=== PATIENT | female | born 1955 | race Hispanic/Latino ===

== ENCOUNTER 2018-05-03 16:49 | Observation (INO) | payer MEDICARE, OTHER ==
[~2018-05-03] VITALS: Ht 162.6 cm; Wt 99.4 kg
--- OUTSIDE RECORDS SUMMARY | 2018-05-03 16:52 | XMS REPORT ---
Author Author [facility] Address Unknown Phone Unavailable Care Team Providers Care Transport Operations Inspector Name Role Phone Unavailable Unavailable Payers Payer Name Policy Type Policy Number Effective Date Expiration Date Problems This patient has no known problems. Allergies, Adverse Reactions, Alerts Allergy Name Allergy Type Status Severity Reaction(s) Onset Date Inactive Date Treating Clinician Comments hydrocodone bit DA Active SV 2013-11-23 00:00:00 Medications This patient has no known medications. Encounters Start Date/Time End Date/Time Encounter Type Admission Type Attending Clinicians Care Facility Care Department Encounter ID 2017-11-30 09:48:36 Inpatient [facility] [id number] 2018-03-24 00:00:00 2018-03-24 00:00:00 Outpatient [facility] [id number] 2018-03-12 00:00:00 2018-03-12 00:00:00 Outpatient [facility] [id number] 2018-02-25 14:52:05 2018-02-25 14:52:05 Outpatient [facility] [id number] 2018-01-29 09:47:26 2018-01-29 09:47:26 Outpatient [facility] [id number] 2018-01-22 00:00:00 2018-01-22 00:00:00 Outpatient [facility] [id number] 2017-12-26 12:35:20 2017-12-26 12:35:20 Outpatient [facility] [id number] 2017-12-26 12:35:17 2017-12-26 12:35:17 Outpatient [facility] [id number] 2017-12-20 00:00:00 2017-12-20 00:00:00 Outpatient [facility] [id number] 2017-12-18 13:48:02 2017-12-18 13:48:02 Outpatient [facility] [id number] 2017-12-18 08:14:43 2017-12-18 08:14:43 Outpatient [facility] [id number] 2017-12-16 13:29:16 2017-12-16 13:29:16 Outpatient [facility] [id number] 2017-12-16 12:07:22 2017-12-16 12:07:22 Outpatient [facility] [id number] 2017-12-10 13:53:25 2017-12-10 13:53:25 Outpatient [facility] [id number] 2017-12-10 12:46:04 2017-12-10 12:46:04 Outpatient [facility] [id number] 2017-12-10 00:00:00 2017-12-10 00:00:00 Outpatient [facility] [id number] 2017-12-10 00:00:00 2017-12-10 00:00:00 Outpatient [facility] [id number] 2017-12-09 00:00:00 2017-12-09 00:00:00 Outpatient [facility] [id number] 2017-12-03 15:31:56 2017-12-03 15:31:56 Outpatient [facility] [id number] 2017-12-02 15:26:45 2017-12-02 15:26:45 Outpatient [facility] [id number] 2017-11-29 18:01:32 2017-11-29 18:01:32 Inpatient [facility] [id number] 2017-10-18 13:16:34 2017-10-18 13:16:34 Outpatient [facility] [id number] 2017-10-15 00:00:00 2017-10-15 00:00:00 Outpatient [facility] [id number] 2017-10-09 00:00:00 2017-10-09 00:00:00 Outpatient [facility] [id number] 2017-10-07 00:00:00 2017-10-07 00:00:00 Outpatient [facility] [id number] 2017-10-07 00:00:00 2017-10-07 00:00:00 Outpatient [facility] [id number] 2017-09-27 13:02:01 2017-09-27 13:02:01 Outpatient [facility] [id number] 2017-08-23 00:00:00 2017-08-23 00:00:00 Outpatient [facility] [id number] 2017-08-16 09:51:19 2017-08-16 09:51:19 Outpatient [facility] [id number] 2017-08-06 00:00:00 2017-08-06 00:00:00 Outpatient [facility] [id number] 2017-08-02 09:39:14 2017-08-02 09:39:14 Outpatient [facility] [id number] 2017-07-31 21:14:26 2017-07-31 21:14:26 Emergency [facility] [id number] 2017-07-19 10:33:23 2017-07-19 10:33:23 Outpatient [facility] [id number] 2017-07-19 10:30:14 2017-07-19 10:30:14 Outpatient [facility] [id number] 2017-07-09 00:00:00 2017-07-09 00:00:00 Outpatient [facility] [id number] 2017-07-04 15:45:07 2017-07-04 15:45:07 Outpatient [facility] [id number] 2017-06-24 11:29:02 2017-06-24 11:29:02 Outpatient [facility] [id number] 2017-06-11 00:00:00 2017-06-11 00:00:00 Outpatient [facility] [id number] 2017-06-03 00:00:00 2017-06-03 00:00:00 Outpatient [facility] [id number] 2017-05-28 07:42:32 2017-05-28 07:42:32 Outpatient [facility] [id number] 2017-05-23 07:27:19 2017-05-23 07:27:19 Outpatient [facility] [id number] 2017-05-21 12:44:13 2017-05-21 12:44:13 Outpatient [facility] [id number] 2017-05-03 15:46:50 2017-05-03 15:46:50 Outpatient [facility] [id number] 2017-05-03 10:26:24 2017-05-03 10:26:24 Outpatient [facility] [id number] 2017-04-19 09:25:06 2017-04-19 09:25:06 Outpatient [facility] [id number] 2017-04-19 00:00:00 2017-04-19 00:00:00 Outpatient [facility] [id number] 2017-04-10 09:40:05 2017-04-10 09:40:05 Outpatient [facility] [id number] 2017-04-09 00:00:00 2017-04-09 00:00:00 Outpatient [facility] [id number] 2017-03-01 08:51:14 2017-03-01 08:51:14 Outpatient [facility] [id number] 2017-03-01 00:00:00 2017-03-01 00:00:00 Outpatient [facility] [id number] 2017-02-26 12:36:30 2017-02-26 12:36:30 Outpatient [facility] [id number] 2017-02-14 09:31:45 2017-02-14 09:31:45 Outpatient [facility] [id number] 2017-02-14 00:00:00 2017-02-14 00:00:00 Outpatient [facility] [id number] 2017-02-13 08:44:56 2017-02-13 08:44:56 Outpatient [facility] [id number] 2017-02-13 08:44:53 2017-02-13 08:44:53 Outpatient [facility] [id number] 2017-02-12 17:09:15 2017-02-12 17:09:15 Outpatient [facility] [id number] 2017-01-31 12:20:22 2017-01-31 12:20:22 Outpatient [facility] [id number] 2017-01-18 00:00:00 2017-01-18 00:00:00 Outpatient [facility] [id number] 2017-01-18 00:00:00 2017-01-18 00:00:00 Outpatient [facility] [id number] 2017-01-17 11:18:33 2017-01-17 11:18:33 Outpatient [facility] [id number] 2017-01-17 10:36:48 2017-01-17 10:36:48 Outpatient [facility] [id number] 2017-01-15 14:12:32 2017-01-15 14:12:32 Outpatient [facility] [id number] 2016-12-04 10:47:48 2016-12-04 10:47:48 Outpatient [facility] [id number] 2016-11-26 13:45:57 2016-11-26 13:45:57 Outpatient [facility] [id number] 2016-10-02 14:25:27 2016-10-02 14:25:27 Outpatient [facility] [id number] 2016-09-17 09:54:06 2016-09-17 09:54:06 Outpatient [facility] [id number] 2016-09-13 15:03:40 2016-09-13 15:03:40 Outpatient [facility] [id number] 2014-01-05 08:26:06 2014-01-05 08:26:06 Outpatient [facility] [id number]
[2018-05-03] MEDS ORDERED: METFORMIN HCL500 M2 PO (17:26)
[2018-05-03] MEDS ORDERED: OMEPRAZOLE40 MG PO (17:26)
[2018-05-03] MEDS ORDERED: LOSARTAN POTAS100 MG PO (17:26)
[2018-05-03] MEDS ORDERED: BENZONATATE100 MG PO (17:26)
[2018-05-03] MEDS ORDERED: LEVOTHYROXINE75 MCG PO (17:26)
[2018-05-03] MEDS ORDERED: PREDNISONE5 MG (17:26)
--- NOTE | 2018-05-03 18:01 | NUR ---
Xray leaves bedside.
[2018-05-03 18:06] LABS: BASOPHILS % 0.1 % (0.0-1.0); HEMATOCRIT 39.4 % (34.2-44.1); HEMOGLOBIN 13.2 g/dL (12.0-16.0); LYMPHOCYTES # (AUTO) 1.7 (1.0-3.2); LYMPHOCYTES % 11.4 % (18.0-39.1); MEAN CORPUSCULAR HEMOGLOBIN 29.8 pg (28-32); MEAN CORPUSCULAR HGB CONC 33.5 g/dL (31-35); MEAN CORPUSCULAR VOLUME 88.9 fL (81-99); MONOCYTES # (AUTO) 0.5 (0.2-0.8); MONOCYTES % 3.4 % (4.4-11.3); NEUTROPHILS # (AUTO) 12.4 (2.1-6.9); NEUTROPHILS % 84.7 % (38.7-80.0); PLATELET COUNT 335 x10e3/uL (140-360); RED BLOOD COUNT 4.43 x10e6/uL (3.6-5.1); RED CELL DISTRIBUTION WIDTH 12.3 % (11.7-14.4)
[2018-05-03 18:12] LABS: INR 0.88; PROTHROMBIN TIME 12.8 seconds (11.9-14.5)
[2018-05-03 18:13] LABS: PARTIAL THROMBOPLASTIN TIME 23.6 seconds (23.8-35.5)
[2018-05-03 18:22] LABS: ALBUMIN 3.9 g/dL (3.5-5.0); CALCIUM 9.9 mg/dL (8.4-10.2); CREATININE, SERUM 1.11 mg/dL (0.57-1.11)
--- NOTE | 2018-05-03 18:26 | Diagnostic Imaging Report ---
EXAMINATION: CHEST SINGLE (PORTABLE) COMPARISON: None INDICATION: ^COUGH, CP, SOB ^[id number] ^1805 DISCUSSION: Frontal view of the chest obtained at 1807 hours. HEART AND MEDIASTINUM: The cardiomediastinal silhouette is unremarkable. LINES: None. LUNGS: Lung volumes are low. No mass or infiltrate. No pulmonary edema. PLEURA: No pleural effusion or pneumothorax. BONES AND SOFT TISSUES: No focal osseous lesion. The soft tissues are normal. IMPRESSION: Low lung volumes. No acute cardiopulmonary process. Signed by: Dr. Tera Conte MD on 05/03/2018 6:23 PM
[2018-05-03 18:34] LABS: BILIRUBIN,URINE NEGATIVE (NEGATIVE); CLARITY,URINE HAZY (CLEAR); COLOR,URINE YELLOW (YELLOW); KETONES,URINE NEGATIVE (NEGATIVE); LEUKOCYTE ESTERASE ,URINE TRACE (NEGATIVE); NITRITE,URINE NEGATIVE (NEGATIVE); PROTEIN,URINE DIPSTICK NEGATIVE (NEGATIVE); URINE UROBILINOGEN 0.2 mg/dL (0.2 - 1)
[2018-05-03 18:41] LABS: BACTERIA,URINE FEW /HPF; EPITHELIAL CELLS,URINE FEW /LPF; RBC,URINE 0-5 /HPF (0-5); WBC,URINE (MAN) 0-5 /HPF (0-5)
[2018-05-03 18:42] LABS: CREATINE KINASE MB 0.5 ng/mL (0-5.0); THYROID STIMULATING HORMONE 0.151 uIU/mL (0.350-4.940)
--- NOTE | 2018-05-03 19:35 | NUR ---
WALKING ROUNDS WITH OLIVA ARROYO DAY SHIFT NURSE.
[2018-05-03 19:45] LABS: B-TYPE NATRIURETIC PEPTIDE2 10.7 pg/mL (0-100)
[2018-05-03] MEDS ORDERED: SODIUM CHLORIDE 0.9% 1000ML 1,000 ML IV SCH (21:15)
[2018-05-03] MEDS ORDERED: NITROGLYCERIN 0.4 MG SUBL SL PRN (22:15)
[2018-05-03] MEDS ORDERED: DEXTROSE 50% SYRINGE 50 ML IV PRN (22:15)
[2018-05-03] MEDS ORDERED: MORPHINE SULFATE 2 MG/ML SYR IV PRN (22:15)
[2018-05-03] MEDS ORDERED: ONDANSETRON HCL INJ 2 MG/ML VIAL IV PRN (22:15)
[2018-05-03] MEDS: CEFTRIAXONE SOD 1 GM/NS 50 ML 50 ML IV SCH (22:56)
[2018-05-03] MEDS: FAMOTIDINE 20 MG TAB PO SCH (22:57)
--- NOTE | 2018-05-04 03:45 | NUR ---
PT PLACED ON HOSPITAL BED.
[2018-05-04 04:54] LABS: BASOPHILS % 0.3 % (0.0-1.0); EOSINOPHILS # (AUTO) 0.1 (0.0-0.4); EOSINOPHILS % 0.6 % (0.0-6.0); HEMATOCRIT 32.5 % (34.2-44.1); HEMOGLOBIN 10.8 g/dL (12.0-16.0); LYMPHOCYTES # (AUTO) 3.1 (1.0-3.2); LYMPHOCYTES % 28.8 % (18.0-39.1); MEAN CORPUSCULAR HEMOGLOBIN 29.6 pg (28-32); MEAN CORPUSCULAR HGB CONC 33.2 g/dL (31-35); MONOCYTES # (AUTO) 0.9 (0.2-0.8); MONOCYTES % 8.8 % (4.4-11.3); NEUTROPHILS # (AUTO) 6.5 (2.1-6.9); NEUTROPHILS % 60.7 % (38.7-80.0); PLATELET COUNT 269 x10e3/uL (140-360); RED BLOOD COUNT 3.65 x10e6/uL (3.6-5.1); RED CELL DISTRIBUTION WIDTH 12.4 % (11.7-14.4)
[2018-05-04 05:17] LABS: ANION GAP 12.8 mmol/L (8-16); BLOOD UREA NITROGEN 22 mg/dL (7-26); BUN/CREATININE RATIO 24 (6-25); CALCIUM 8.8 mg/dL (8.4-10.2); CARBON DIOXIDE 21 mmol/L (22-29); CHLORIDE 103 mmol/L (98-107); CHOL/HDL RATIO 2.8 (3.0-3.6); CHOLESTEROL 169 MD/DL (0-199); CREATININE, SERUM 0.92 mg/dL (0.57-1.11); EST GLOMERULAR FILTRATION RATE > 60 ML/MIN (60-); GLUCOSE 301 mg/dL (74-118); HDL CHOLESTEROL 60 MG/DL (40-60); LDL CHOLESTEROL 75 MG/DL (60-130); POTASSIUM 3.8 mmol/L (3.5-5.1); SODIUM 133 mmol/L (136-145); TRIGLYCERIDES 169 MG/DL (0-149)
[2018-05-04 05:26] LABS: CREATINE KINASE MB 0.6 ng/mL (0-5.0)
--- NOTE | 2018-05-04 07:04 | NUR ---
Walking rounds with OLIVA Vega.
--- NOTE | 2018-05-04 07:04 | NUR ---
REPORT GIVEN TO OLIVA ARROYO DAY SHIFT NURSE.
--- NOTE | 2018-05-04 07:07 | NUR ---
REPORT GIVEN TO OLIVA ARROYO DAY SHIFT NURSE.
[2018-05-04] MEDS: ASPIRIN 81 MG ENTERIC COATED PO SCH (08:00)
[2018-05-04] MEDS: INSULIN REGULAR, HUMAN 100 UNIT/1 ML 3ML VIAL SQ SCH ×4 (08:03→21:28)
[2018-05-04] MEDS: AZITHROMYCIN 500MG/NS 250 ML 250 ML IV SCH (08:06)
--- NOTE | 2018-05-04 09:07 | NUR ---
Pt's right AC IV is noted to be infiltrated. Warm compresses placed onto site for comfort.
--- NOTE | 2018-05-04 09:12 | NUR ---
Lactic 29.2, phone called recieved by lab.
[2018-05-04] MEDS: FAMOTIDINE 20 MG TAB PO SCH ×2 (10:00→21:28)
[2018-05-04] MEDS ORDERED: MORPHINE SULFATE INJ 4 MG/ML INJ IV PRN (10:15)
--- NOTE | 2018-05-04 11:00 | NUR ---
Right AC obtained using an us machine via 20 g, upon flush administration to the site, infiltration is noted. IV is DC'd. A warm compress is placed onto the site for comfort. Admitting doctor called, orders rec'd. See [facility] for details.
[2018-05-04] MEDS ORDERED: GUAIFENESIN/CODEINE 10 ML CUP PO PRN (11:15)
[2018-05-04] MEDS ORDERED: BENZONATATE 100 MG CAP PO PRN (11:15)
--- NOTE | 2018-05-04 11:46 | NUR ---
Dr. Duran roundsusan at this time.
[2018-05-04] MEDS ORDERED: ACETAMINOPHEN 325 MG TAB PO PRN (12:30)
--- NOTE | 2018-05-04 12:42 | NUR ---
Consent signed & placed on chart.
--- NOTE | 2018-05-04 13:45 | NUR ---
report received from Daniela in ER, patient arriving with no IV access, PICC to be placed. Patient arrived on floor in wheelchair. Alert and oriented and in no distress.
[2018-05-04 14:00] VITALS: BP 135/62
[2018-05-04 14:06] VITALS: BP 134/63
[2018-05-04 14:08] VITALS: BP 134/63
[2018-05-04 14:17] LABS: CREATINE KINASE MB 0.6 ng/mL (0-5.0)
--- NOTE | 2018-05-04 14:52 | History and Physical ---
MEDICINE HISTORY AND PHYSICAL CHIEF COMPLAINT: Cough, congestion, not feeling well. HISTORY OF PRESENT ILLNESS: This is a 63-year-old female morbidly obese with known history of hypertension and type 2 diabetes and hypothyroidism, who comes into the ED with complaints of cough, congestion, and not feeling well. She was recently seen at [facility] ER, was treated for acute bronchitis, given steroids, , and antibiotics. Patient reports that she is still not feeling well and came into the ER here to be further evaluated. On evaluation, patient still has a nonproductive cough and sounds more like a viral bronchitis. She also endorses some chest pains left-sided with radiation to the left shoulder and arm. Denies any fever at home, diarrhea, abdominal pain, or any other complaints. Patient seen and evaluated at bedside in the ER, currently very stable and was eager to be discharged. Pertinent positive in the lab shows a slight elevation of lactic acid. REVIEW OF SYSTEMS: Pertinent positives: Cough, congestion, subjective fever, chest pain. Pertinent negatives: Denies any palpitations, nausea, vomiting, diarrhea, dysuria, hematuria, frequency, urgency, lightheadedness, dizziness, abdominal pain, headache, shortness of breath, fever, or any other complaints. The rest of the 14-point review of systems have been reviewed with the patient and are negative. ALLERGIES: NO KNOWN DRUG ALLERGIES. HOME MEDICATIONS: Levothyroxine 75 mcg daily, losartan 100 mg daily, omeprazole 40 mg daily, Tessalon Perles 100 mg p.o. t.i.d., metformin 1000 mg p.o. b.i.d., prednisone 5 mg daily. PAST MEDICAL HISTORY: Type 2 diabetes, hypertension, morbid obesity, hypothyroidism. PAST SURGICAL HISTORY: None. FAMILY HISTORY: Hypertension and diabetes. SOCIAL HISTORY: No drugs. No alcohol. Does not smoke. Good social support. VITAL SIGNS: Temperature is 98, pulse 70, respiratory rate is 16, blood pressure 115/58, pulse ox 100% on room air. LAB FINDINGS: Show white count 10.6, hemoglobin 10.8, hematocrit is 32.8, platelets of 269. Coagulation: PT 12, INR 0.88, PTT 23.6, D-dimer 0.15. Chemistries: Sodium 133, potassium is 3.8, chloride 103, bicarb 21, anion gap of 12, BUN is 23, creatinine 0.9, and glucose is 301. Lactic acid is 21.2. Her magnesium level was 2. LFTs were normal. LDL 75. Troponin was 0.045. LDL 75, TSH was 0.151. Urinalysis was negative. Flu was negative. Blood and urine cultures are pending. Chest x-ray shows low lung volumes, no acute cardiopulmonary process. PHYSICAL EXAM GENERAL: Not in acute distress. Alert and oriented x3. Cooperative on examination. HEENT: Head is normocephalic and atraumatic. Eyes: Pupils equal, round and reactive to light bilaterally. Extraocular movements intact bilaterally. NECK: Supple. Good range of motion. Throat with no evidence of any erythema or exudates in the posterior pharynx. Has poor dentition. PULMONARY: Clear to auscultation bilaterally. No wheezing. No rales. No crackles appreciated. She does have some rhonchi appreciated likely due to the underlying bronchitis. CARDIOVASCULAR: Positive S1 and S2. No murmurs, rubs or gallops appreciated. ABDOMEN: Soft, nondistended and nontender to palpation. Bowel sounds present. MUSCULOSKELETAL: Strength is 5/5 throughout. No evidence of any muscle deficit on examination. No weakness appreciated. NEUROLOGICAL: Cranial nerves II through XII are grossly intact. No evidence of any neurological deficits on exam. SKIN: Intact. Warm to touch. Good cap refill. PSYCHIATRIC: Normal affect and mood. EXTREMITIES: No edema. Good range of motion throughout. IMPRESSION 1. Acute bronchitis likely to be viral in etiology. 2. Atypical chest pain. 3. Type 2 diabetes. 4. Hypertension. 5. Hypothyroidism. PLAN: In terms of her acute bronchitis likely to be viral, it does not seem the patient is convinced that this is viral in etiology. She was recently on antibiotics. I will go ahead and start her on antibiotics in the event there is superimposed bacterial infection. She is on IV azithromycin and Rocephin. Blood and urine cultures are pending. Her cardiac enzymes were negative. EKG shows no acute findings but because of her chest pain, she continues to complain of chest pain and endorses that it has been an ongoing problem. I will go ahead and consult with cardiology. Get a.m. labs. Resume same home medications. Put her on Lovenox for DVT prophylaxis. I added some medication, Robitussin with Codeine and Tessalon Perles. Otherwise, we will continue with same plan of care and monitor overnight. Job#: [id number] WOO
[2018-05-04] MEDS: HYDROCODONE/APAP 5MG-325MG TAB PO PRN ×2 (15:05→21:05)
[2018-05-04 16:26] VITALS: BP 135/62
[2018-05-04] MEDS: ENOXAPARIN SOD INJ 40 MG/0.4 ML SYR SC SCH (17:00)
--- NOTE | 2018-05-04 18:45 | NUR ---
rounded with the night nurse, patient aware of shift change. Patient in no distress, call black within reach.
--- NOTE | 2018-05-04 18:49 | Consultation ---
DATE OF CONSULTATION: May 04, 2018 CARDIOLOGY CONSULTATION REQUESTING PHYSICIAN: Dr. Duran. REASON FOR CONSULTATION: Chest pain. HISTORY OF PRESENT ILLNESS: This is a 63-year-old woman with history of hypertension and type 2 diabetes who presents with complaints of shortness of breath and chest pain. The patient indicates that she has been having fever, chills as well as shortness of breath for approximately 3 days. She was seen at an outside ER and given medications for acute bronchitis; however, she did not improve with these medications and thus presents for further evaluation. In addition to her shortness of breath, patient also complains of chest tightness starting 10 a.m. the day before admission. She describes the pain as 8/10 in severity and lasting approximately 30 minutes. This is associated with left arm numbness. The pain then recurred later in the day, but lasted longer. Cardiology is therefore consulted for further evaluation. REVIEW OF SYSTEMS: Negative except as per HPI. PAST MEDICAL HISTORY 1. Hypertension. 2. Diabetes mellitus. PAST SURGICAL HISTORY 1. section x4. 2. Hysterectomy. 3. Cholecystectomy. 4. Hernia surgery. 5. Bladder surgery. ALLERGIES: NO KNOWN DRUG ALLERGIES. MEDICATIONS: Please see medical list. SOCIAL HISTORY: Denies tobacco, alcohol, or illicit drugs. FAMILY HISTORY: Pertinent for father with CVA. PHYSICAL EXAMINATION VITAL SIGNS: Temperature 97.5 degrees, pulse 81, respiratory rate 18, blood pressure 134/62, oxygen saturation 99% on room air. GENERAL: Well-developed, well-nourished woman, in no acute distress. HEENT: Normocephalic, atraumatic. Pupils equal. No scleral icterus. NECK: Supple. No thyromegaly or cervical lymphadenopathy. LUNGS: Clear to auscultation bilaterally. No wheezes or crackles. CARDIOVASCULAR: Normal rate, regular rhythm. A 1/6 systolic murmur. Normal S1 and S2. ABDOMEN: Soft, nontender. EXTREMITIES: No edema. NEUROLOGIC: Nonfocal exam. LABS: WBC 10.68, hemoglobin 10.8, hematocrit 32.5, platelets 269. Sodium 132, potassium 3.8, chloride 103, CO2 of 21, BUN of 22, creatinine 0.92. Lactic acid 28.3. Troponin 0.042. BNP 10.7. TSH 0.15. Cholesterol 169, triglycerides 169, LDL 75, HDL 60. UA; 2+ glucose, trace leukocyte esterase. Chest x-ray, low lung volumes, no acute cardiopulmonary process. EKG; sinus tachycardia, cannot rule out anterior infarct. IMPRESSION 1. Chest pain. 2. Shortness of breath suspect acute bronchitis. 3. Hypertension. 4. Diabetes mellitus type 2. 5. Hypothyroidism. RECOMMENDATIONS: Patient ruled out for myocardial infarction with serial cardiac biomarkers. Given her risk factors as well as murmur auscultated on exam, we will obtain echocardiogram. Ischemic evaluation is indicated. We will proceed with nuclear stress test in the morning. Continue current cardiac medications. Blood pressure is well controlled and LDL is acceptable. Thank you for this consult. We will continue to follow. Job#: [id number] VALENTIN
--- NOTE | 2018-05-04 19:00 | NUR ---
RECEIVED PT RESTING IN BED WITH NO S/S OF DISTRESS.RESPIRATIONS EVEN/NON LABORED.PT HAS NO IV ACCESS.PICC LINE TO BE DONE.INSTRUCTED PT TO CALL FOR ASSISTANCE NEEDED,PT VERBALIZED UNDERSTANDING.FAMILY MEMBERS AT BEDSIDE.BED IN LOWEST/LOCKED POSITION.CALL LIGHT WITHIN EASY REACH.
[2018-05-04 19:23] LABS: CREATINE KINASE MB 0.7 ng/mL (0-5.0)
[2018-05-04 20:00] VITALS: BP 130/60
--- NOTE | 2018-05-04 20:00 | NUR ---
CALL PLACED TO RADIOLOGY TO FOLLOW UP REGARDING PICC LINE PLACEMENT,SPOKE WITH ROMÁN,SHE STATED THAT THEY HAVE TO CALL THE PICC LINE TEAM.NOTIFIED ROMÁN THAT THE CONSENT HAS ALREADY BEEN SIGNED.
[2018-05-04 21:35] VITALS: BP 130/60
[2018-05-04] MEDS: CEFTRIAXONE SOD 1 GM/NS 50 ML 50 ML IV SCH (22:15)
[2018-05-05] VITALS: BP 128/57
--- NOTE | 2018-05-05 03:47 | Diagnostic Imaging Report ---
EXAMINATION: CHEST XRAY LINE PLACEMENT INDICATION: PICC LINE PLACEMENT VERIFICATION COMPARISON: Chest x-ray 05/03/2018 FINDINGS: AP view TUBES and LINES: Interval placement of right upper extremity PICC with tip overlying the mid to lower SVC. LUNGS: Lungs are well inflated. Left basilar atelectasis or scarring. There is no evidence of pneumonia or pulmonary edema. PLEURA: No pleural effusion or pneumothorax. HEART AND MEDIASTINUM: The cardiomediastinal silhouette is unremarkable. BONES AND SOFT TISSUES: No acute osseous lesion. Soft tissues are unremarkable. UPPER ABDOMEN: No free air under the diaphragm. IMPRESSION: Right upper extremity PICC tip overlies the SVC. No acute thoracic abnormality. Signed by: DR. Glen King MD on 05/05/2018 3:43 AM
[2018-05-05 04:00] VITALS: BP 124/64
--- NOTE | 2018-05-05 04:43 | NUR ---
CALL PLACED TO RADIOLOGY SPOKE WITH MELCHOR NOTIFIED HIM THAT THE PICC LINE NURSE DID NOT DO THE PICC LINE INSERTION INTERVENTION,AND THERE IS NOT AN OK TO USE PICC LINE PUT IN.MELCHOR STATED THAT HE WILL TRY TO CALL THE PICC LINE TEAM AND ASK THEM AND CALL THIS NURSE BACK.CHARGE NURSE NOTIFIED.
[2018-05-05 05:27] LABS: BASOPHILS % 0.5 % (0.0-1.0); EOSINOPHILS # (AUTO) 0.2 (0.0-0.4); EOSINOPHILS % 2.2 % (0.0-6.0); HEMATOCRIT 33.7 % (34.2-44.1); HEMOGLOBIN 11.2 g/dL (12.0-16.0); LYMPHOCYTES # (AUTO) 3.6 (1.0-3.2); LYMPHOCYTES % 43.9 % (18.0-39.1); MEAN CORPUSCULAR HEMOGLOBIN 29.3 pg (28-32); MEAN CORPUSCULAR HGB CONC 33.2 g/dL (31-35); MEAN CORPUSCULAR VOLUME 88.2 fL (81-99); MONOCYTES # (AUTO) 0.7 (0.2-0.8); MONOCYTES % 8.9 % (4.4-11.3); NEUTROPHILS # (AUTO) 3.6 (2.1-6.9); NEUTROPHILS % 44.3 % (38.7-80.0); PLATELET COUNT 270 x10e3/uL (140-360); RED BLOOD COUNT 3.82 x10e6/uL (3.6-5.1); RED CELL DISTRIBUTION WIDTH 12.4 % (11.7-14.4)
[2018-05-05 05:51] LABS: ANION GAP 11.9 mmol/L (8-16); BLOOD UREA NITROGEN 20 mg/dL (7-26); BUN/CREATININE RATIO 23 (6-25); CALCIUM 8.9 mg/dL (8.4-10.2); CARBON DIOXIDE 24 mmol/L (22-29); CHLORIDE 109 mmol/L (98-107); CREATININE, SERUM 0.87 mg/dL (0.57-1.11); EST GLOMERULAR FILTRATION RATE > 60 ML/MIN (60-); GLUCOSE 137 mg/dL (74-118); POTASSIUM 3.9 mmol/L (3.5-5.1); SODIUM 141 mmol/L (136-145)
[2018-05-05] MEDS ORDERED: LEVOTHYROXINE SODIUM 75 MCG TAB PO SCH (06:00)
--- NOTE | 2018-05-05 06:00 | NUR ---
PICC LINE NURSE CALLED BACK AND STATED THAT HE WILL BE COMING LATER ON AND DOCUMENT THE PICC LINE INSERTION INTERVENTION.CHARGE NURSE NOTIFIED.
--- NOTE | 2018-05-05 07:05 | NUR ---
Received patient mid fowlers position, side rails upx2, call light within reach. Resting with eyes closed. Arousable to verbal stimuli. Respirations even and unlabored. Will continue to monitor.
--- NOTE | 2018-05-05 07:15 | NUR ---
REPORT GIVEN TO ONCOMING NURSE,WALKING ROUNDS MADE.PT RESTING IN BED WITH NO S/S OF DISTRESS NOTED.
[2018-05-05] MEDS: INSULIN REGULAR, HUMAN 100 UNIT/1 ML 3ML VIAL SQ SCH ×3 (07:30→16:30)
[2018-05-05] MEDS ORDERED: PANTOPRAZOLE SOD 40 MG TABEC PO SCH (07:30)
[2018-05-05 08:00] VITALS: BP 105/63
[2018-05-05] MEDS ORDERED: LOSARTAN POTASSIUM 100 MG TAB PO SCH (09:00)
[2018-05-05 09:38] VITALS: BP 105/63
[2018-05-05] MEDS ORDERED: REGADENOSON 0.4 MG/5 ML SYR IV ONE (09:46)
[2018-05-05] MEDS: AZITHROMYCIN 500MG/NS 250 ML 250 ML IV SCH (10:09)
[2018-05-05] MEDS: FAMOTIDINE 20 MG TAB PO SCH (10:09)
--- NOTE | 2018-05-05 11:16 | NUR ---
SPOKE W DR. SOARES. STATES IF PT DOES OK ON HER STRESS TEST, PT IS OK TO GO HOME TODAY.
--- NOTE | 2018-05-05 11:59 | Progress Note ---
DATE: May 05, 2018 MEDICINE PROGRESS NOTE SUBJECTIVE: The patient is doing much better today with no complaints. She is scheduled for a cardiac stress test later today. She reports having some chest pain last night. She does have a nonproductive cough. She has been afebrile. OBJECTIVE VITAL SIGNS: Temperature is 96.5, pulse 68, respiratory rate 14, blood pressure 105/63, pulse ox 96% on room air. LAB FINDINGS: White count 8.1, hemoglobin 11.2, hematocrit 33.7, platelets 270. Her coagulations are all normal. Her D-dimer was 0.15. Chemistries: Sodium 141, potassium 3.9, chloride 109, bicarb 24, anion gap 11, BUN 20, creatinine 0.87, glucose 137. Lactic acid was normal at 10.5, now within range. Calcium is 8.9. The patient clinically looks well with no issues. Does not look toxic-appearing. Urinalysis was negative. MICROBIOLOGY: Blood and urine cultures are all negative for growth to date. She currently has a PICC line. PHYSICAL EXAMINATION GENERAL: Not in acute distress. Alert and oriented x3. Cooperative on examination. HEENT: Head is normocephalic and atraumatic. Eyes: Pupils equal, round and reactive to light bilaterally. Extraocular movements intact bilaterally. NECK: Supple. Good range of motion. Throat with no evidence of any erythema or exudates in the posterior pharynx. Has poor dentition. PULMONARY: Clear to auscultation bilaterally. No wheezing. No rales. No crackles appreciated. CARDIOVASCULAR: Positive S1 and S2. No murmurs, rubs or gallops appreciated. ABDOMEN: Soft, nondistended and nontender to palpation. Bowel sounds present. MUSCULOSKELETAL: Strength is 5/5 throughout. No evidence of any muscle deficit on examination. No weakness appreciated. NEUROLOGICAL: Cranial nerves II through XII are grossly intact. No evidence of any neurological deficits on exam. SKIN: Intact. Warm to touch. Good cap refill. PSYCHIATRIC: Normal affect and mood. EXTREMITIES: No edema. Good range of motion throughout. IMPRESSION 1. Acute bronchitis likely viral etiology. 2. Chest pain, which has been ruled out. 3. Type-2 diabetes. 4. Hypertension. 5. Hypothyroidism. 6. Morbid obesity. PLAN: At this time, she continues to be on IV antibiotics for now. I have already written scripts for oral antibiotics upon discharge as well with Levaquin. She will also get some steroids. Her cardiac enzymes were negative, but cardiology was consulted who felt like a stress test was appropriate. We are waiting for cardiac stress test later today. If the cardiac stress test is negative and 2-D echo is normal and cleared by cardiology, she is cleared to be discharged home later today. Scripts have been written and placed into the chart. Otherwise, she reports doing much better today with no other complaints. Job#: [id number]
--- NOTE | 2018-05-05 13:38 | NUR ---
SOCIAL WORK INITIAL ASSESSMENT Ice Cream Dispenser to bedside to discuss plan of care with patient/family. CM/SW role and care transitions discussed. Anticipated discharge plan discussed along with duration of care. CM/SW discussed patients right to make decisions in care. CM/SW work hours given. Patient lives: IN OWN HOUSE WITH FAMILY Admit/Transfer: VIA HOME POA/Emergency contact: CHANDRIKA GONZALEZ [phone] Current/Previous Home Health: NONE PCP/Follow-up Care: GILBERT MULLINS Current/Previous DME: NONE Other Services: NONE Employment Status: RETIRED Areas of Concerns: NONE Referral Needs: NONE Education Needs: NONE IMM/APARICIO given and signed (if applicable): APARICIO Goal for discharge: RETURN HOME INDEPENDENTLY CM/SW left business card at the bedside with contact information. Name and number was also written on the patients whiteboard. Patient verbalized understanding of discussion. CM will follow-up with ongoing discharge and transition of care needs.
[2018-05-05 16:30] VITALS: BP 128/58
[2018-05-05] MEDS: HYDROCODONE/APAP 5MG-325MG TAB PO PRN (16:39)
[2018-05-05] MEDS: ASPIRIN 81 MG ENTERIC COATED PO SCH (17:11)
[2018-05-05] MEDS: ENOXAPARIN SOD INJ 40 MG/0.4 ML SYR SC SCH (17:12)
--- NOTE | 2018-05-05 18:25 | NUR ---
Per patient's stress test negative and cleared from cardiac standpoint. Dr. Duran aware. See orders
[2018-05-05] MEDS ORDERED: PREDNISONE20 MG PO (18:34)
[2018-05-05] MEDS ORDERED: LEVAQUIN500 MG PO (18:34)
--- NOTE | 2018-05-05 18:45 | NUR ---
Right PICC discontinued as ordered. 37cm removed. No signs of infiltration noted. 2x2 gauze and tape placed.
--- NOTE | 2018-05-05 18:50 | NUR ---
Taken via wheelchair to personal car. Accompanied by . AAOX4 to time, person,place, situation. Respirations even and unlabored. Denies chest pain. Discharge instructions, rx, and all personal belongings taken with patient.
--- NOTE | 2018-05-05 19:54 | Cardiology Report ---
DATE OF STUDY: May 05, 2018 NUCLEAR STRESS TEST PROCEDURE TITLE: Rest/stress single isotope SPECT imaging with pharmacologic stress and gated SPECT imaging. INDICATIONS: Chest pain. PROCEDURE: Pharmacological stress test was performed with regadenoson per protocol. The heart rate was 72 beats per minute at rest and increased to 110 beats per minute during the regadenoson infusion. The rest blood pressure was 134/69 mmHg and increased to 141/69 mmHg, which is a normal response. The patient did not develop any significant symptoms. The rest electrocardiogram demonstrated normal sinus rhythm. There were no ST segment changes suggestive of myocardial ischemia. Myocardial perfusion imaging was performed at rest following the injection of 11 mCi of tetrofosmin. At peak pharmacologic effect, the patient was injected with 32.8 mCi of tetrofosmin. Gated post rest tomographic imaging was performed. FINDINGS: The overall quality of the study is fair. Left ventricular cavity is noted to be normal sized on the rest and stress studies. SPECT images demonstrated homogenous tracer distribution throughout the myocardium. Gated SPECT imaging reveals normal myocardial thickening and wall motion. The left ventricular ejection fraction was calculated to be 68%. IMPRESSION: Myocardial perfusion imaging is normal. Overall, left ventricular systolic function was normal without regional wall motion abnormalities. Job#: [id number] [employer]
--- NOTE | 2018-05-05 23:12 | Progress Note ---
DATE: May 05, 2018 CARDIOLOGY PROGRESS NOTE SUBJECTIVE: Patient denies chest pain or shortness of breath. She was seen for nuclear stress test. OBJECTIVE: VITAL SIGNS: Temperature 96.5 degrees, pulse 68, respiratory rate 14, blood pressure 105/63, oxygen saturation 96% on room air. GENERAL: Awake and alert, in no acute distress. LUNGS: Clear to auscultation bilaterally. No wheezes or crackles. CARDIOVASCULAR: Normal rate, regular rhythm. 1/6 systolic murmur. Normal S1 and S2. ABDOMEN: Soft, nontender. EXTREMITIES: No edema. CARDIAC MEDICATIONS: Aspirin 81 mg p.o. daily, losartan 100 mg p.o. daily, levothyroxine 75 mcg p.o. daily. LABS: WBC 8.16, hemoglobin 11.2, hematocrit 32.7, platelets 270,000. Sodium 141, potassium 3.9, chloride 109, CO2 24, BUN 20, creatinine 0.87. TELEMETRY: Normal sinus rhythm. IMPRESSION: 1. Chest pain. 2. Shortness of breath, suspect acute bronchitis. 3. Hypertension. 4. Diabetes mellitus type 2. 5. Hypothyroidism. RECOMMENDATIONS: Patient ruled out for myocardial infarction with serial cardiac biomarkers. Patient's nuclear stress test was without evidence of ischemia, and preserved LV function. Continue current cardiac medications. Please have patient followup in the office in 2 weeks. Thank you for this consult. We will continue to follow. Job#: [id number]
--- NOTE | 2018-05-06 14:39 | Discharge Summary ---
FINAL DISCHARGE DIAGNOSES 1. Atypical chest pain with negative cardiac stress test. 2. Acute bronchitis. 3. Type 2 diabetes. 4. Hypertension. 5. Hypothyroidism. 6. Morbid obesity. CONSULTANTS: Cardiology. VITAL SIGNS: Temperature is 96.8, pulse 84, respiratory rate is 18, blood pressure 128/58, pulse ox 98% on room air. LAB FINDINGS: Show a white count of 8.1, hemoglobin 11.2, hematocrit 34, and platelets of 270,000. Coagulation: PT 12, INR 0.8 and PTT 23. D-dimer is 0.15. Chemistry: Sodium 141, potassium 3.9, chloride 109, bicarb 24, anion gap of 11, BUN is 20, creatinine 0.8, glucose is 137. Lactic acid is 10.5, which is normal in this hospital. Her troponins were negative times 4. LDL 75. TSH was 0.151. Urinalysis was negative. Serologies and flu negative. Urine cultures were negative. Blood cultures were negative greater than 48 hours. IMAGING STUDIES: Chest x-ray shows no acute cardiopulmonary process. HOSPITAL COURSE: This is a 63-year-old female who came into the ED with complaints of cough, congestion and underlying chest pain. In relation to her chest pain, cardiology was consulted. Had negative cardiac enzymes times 4. EKG shows no acute findings. Cardiac stress test was performed on May 05, 2018, and found to be normal, and was cleared by cardiology for discharge home. A 2-D echo was normal as well. The patient will continue with cardioprotective meds and follow with cardiology as an outpatient in 2 weeks' time. In relation to her cough and congestion, she was treated for acute bronchitis with oral antibiotics, as well as some steroids. The patient improved throughout the hospital course with no other issues. She reports she is back to normal baseline prior to being discharged home. On the day of discharge, vital signs stable, labs reviewed and stable. The patient was seen, evaluated and examined thoroughly on the day of discharge. No other complaints. Patient verbalized understanding and agrees to plan of care, and to follow up accordingly as an outpatient with the primary care physician in 1 week and keno attendant in 2 weeks' time. MEDICATIONS: See med reconciliation form, including Levaquin and prednisone. DISPOSITION: Home. CONDITION: Stable. Labs were ordered. In the event of any worsening symptoms, the patient was advised to come back to the ED for further evaluation. Discharge summary took greater than 35 minutes. NICOLAS COPE MD Job#: [id number] [place]
== END 2018-05-05 18:50 | disposition home or self-care (01) ==
LOC: ER 16:49 → ERHOLD 23:16 → IMCU 05-04 13:53
PROVIDERS: ADMIT Internal Medicine; ATTEND Internal Medicine
DX: J20.8 Acute bronchitis due to other specified organisms (principal); E11.9 Type 2 diabetes mellitus without complications; I10 Essential (primary) hypertension; E03.9 Hypothyroidism, unspecified; E66.01 Morbid (severe) obesity due to excess calories; Z68.35 Body mass index [BMI] 35.0-35.9, adult; Z79.4 Long term (current) use of insulin; R07.89 Other chest pain
CPT/HCPCS: 36415 ×3; 36569; 71045 ×2; 78452; 80048 ×2; 80053; 80061; 81001; 82550 ×2; 82553 ×2; 82948 ×2; 83605 ×3; 83735; 83880; 84443; 84484 ×2; 85025 ×3; 85379; 85610; 85730; 87040; 87086; 87400; 93005; 93017; 93306; 99284; A9502; G0378 ×3; J0456 ×2; J0696; J1650 ×2; J1817; J2270; J2405; J2785; J7030; S0164

== ENCOUNTER 2019-10-18 15:09 | Emergency (ER) | payer MEDICARE, OTHER ==
[~2019-10-18] VITALS: Ht 162.6 cm; Wt 99.3 kg
[~2019-10-18 15:09] MED LIST: BENZONATATE100 MG PO; LEVAQUIN500 MG PO; LEVOTHYROXINE75 MCG PO; LOSARTAN POTAS100 MG PO; METFORMIN HCL500 M2 PO; OMEPRAZOLE40 MG PO; PREDNISONE20 MG PO; PREDNISONE5 MG
--- NOTE | 2019-10-18 16:23 | Emergency Department Note ---
History of Present Illnes History of Present Illness Chief Complaint: COVID PUI History of Present Illness This is a 64 year old female PATIENT IN FROM HOME WITH COMPLAINTS OF FEVER, COUGH, AND GENERALIZED BODY ACHES X 2-3 DAYS; PATIENT STATES THAT SHE WAS SEEN AT A DIFFERENT EMERGENCY ROOM 2 DAYS AGO AND TESTED FOR COVID-19 BUT DOES NOT HAVE THE RESULTS YET, SAYS CXR WAS NORMAL. PATIENT IN TODAY BECAUSE SHE STATES THAT SHE IS FEELING WORSE. PATIENT O2 SATS 98% ON ROOM AIR, RESP EVEN AND NONLABORED, BREATH SOUNDS CLEAR. PATIENT AMBULATORY WITHOUT ASSISTANCE. Historian: Patient Arrival Mode: Car History limited by: language barrier Core Sticker Required: Yes Location: FEVER Quality: SYSTEMIC Radiation: Reports non-radiation Severity: mild Onset quality: gradual Duration (how long): day(s) (3) Timing of current episode: intermittent Progression: waxing and waning Chronicity: new Context: Denies recent illness Relieving factors: none Exacerbating factors: none Associated symptoms: Reports cough, Reports fever/chills; Denies shortness of breath Treatments prior to arrival: none Past Medical/Family History Physician Review I have reviewed the patient's past medical and family history. Any updates have been documented here. Past Medical History Recent Fever: Yes Clinical Suspicion of Infectio: Yes New/Unexplained Change in Ment: No Past Medical History: Hypertension, Diabetes, Hypothyroidism, GERD Other Medical History: GERD Past Surgical History: Cholecysctectomy, Hysterectomy, , Hernia Repair Other Surgery: bladder suspension Social History Smoking Cessation: Never Smoker Counseling Performed: No Alcohol Use: Daily Any Illegal Drug Use: No TB Exposure/Symptoms: No Physically hurt or threatened: No Family History Family history of heart diseas: No Other Last Tetanus: UNKNOWN Any Pre-Existing Lines (PICC,: No Is patient up to date on immun: Yes Last Flu: UTD Last Pneumovax: UTD Review of Systems Review of Systems Constitutional: Reports no symptoms EENTM: Reports no symptoms Cardiovascular: Reports no symptoms Respiratory: Reports as per HPI Gastrointestinal: Reports no symptoms Genitourinary: Reports no symptoms Musculoskeletal: Reports no symptoms Integumentary: Reports no symptoms Neurological: Reports no symptoms Psychological: Reports no symptoms Endocrine: Reports no symptoms Hematological/Lymphatic: Reports no symptoms Physical Exam Related Data Allergies: Coded Allergies: No Known Allergies (Unverified , 05/03/18) Triage Vital Signs Vital Signs Date Time Temp Pulse Resp B/P (MAP) Pulse Ox O2 Delivery O2 Flow Rate FiO2 10/18/19 15:14 97.1 71 18 115/63 98 Vital signs reviewed: Yes Physical Exam CONSTITUTIONAL Constitutional: Present well-developed, Present well-nourished HENT HENT: Present normocephalic, Present atraumatic, Present oropharynx clear/moist, Present nose normal HENT L/R: Present left ext ear normal, Present right ext ear normal EYES Eyes: Reports PERRL, Reports conjunctivae normal NECK Neck: Present ROM normal PULMONARY Pulmonary: Present effort normal, Present breath sounds normal CARDIOVASCULAR Cardiovascular: Present regular rhythm, Present heart sounds normal, Present capillary refill normal, Present normal rate GASTROINTESTINAL Abdominal: Present soft, Present nontender, Present bowel sounds normal GENITOURINARY Genitourinary: Present exam deferred SKIN Skin: Present warm, Present dry MUSCULOSKELETAL Musculoskeletal: Present ROM normal NEUROLOGICAL Neurological: Present alert, Present oriented x 3, Present no gross motor or sensory deficits PSYCHOLOGICAL Psychological: Present mood/affect normal, Present judgement normal Assessment & Plan Medical Decision Making MDM NO EMERGENCY, VSS Reassessment Reassessment PT ADVISED TO SELF-QUARANTINE, D/W HER THE PROBABLE BENEFITS OF PRONING, NEED FOR F/U WITH PCP AND RESULTS OF COVID TESTING Assessment & Plan Final Impression: (1) Viral syndrome Depart Disposition: HOME, SELF-CARE Last Vital Signs Date Time Temp Pulse Resp B/P (MAP) Pulse Ox O2 Delivery O2 Flow Rate FiO2 10/18/19 15:14 97.1 71 18 115/63 98 Home Meds Reported Medications Prednisone (PREDNISONE) 20 Mg Tab, 20 MG PO DAILY for 5 Days, TAB 05/05/18 Levofloxacin (LEVAQUIN) 500 Mg Tablet, 500 MG PO DAILY for 8 Days, TAB 05/05/18 Omeprazole (OMEPRAZOLE) 40 Mg Capsule.dr, 20 MG PO DAILY 05/03/18 Levothyroxine Sodium (LEVOTHYROXINE SODIUM) 75 Mcg Tablet, 75 MCG PO DAILY, #30 TAB 05/03/18 Metformin Hcl (METFORMIN HCL ER) 500 Mg Tab.er.24, 1000 MG PO BID, #60 TAB 05/03/18 Losartan Potassium (LOSARTAN POTASSIUM) 100 Mg Tablet, 100 MG PO DAILY, TAB 05/03/18 Benzonatate (BENZONATATE) 100 Mg Capsule, 100 MG PO TID, CAP 05/03/18 KELLE PEDROZA MD Oct 18, 2019 16:23
== END 2019-10-18 16:23 | disposition home or self-care (01) ==
LOC: ER 15:09
DX: R50.9 Fever, unspecified (principal); R05 Cough; B34.9 Viral infection, unspecified; I10 Essential (primary) hypertension; E11.9 Type 2 diabetes mellitus without complications; E03.9 Hypothyroidism, unspecified; K21.9 Gastro-esophageal reflux disease without esophagitis
CPT/HCPCS: 99282

== ENCOUNTER → 2020-02-05 | Outpatient (CLI) | payer MEDICARE ==
[~2020-02-05] MED LIST changes: +IOPAMIDOL 370 MG/ML 200 ML INFUS..BTL INJ ONE; +METOPROLOL TARTRATE 25 MG TAB ONE; +METOPROLOL TARTRATE INJ 1 MG/ML VIAL ONE; +NITROGLYCERIN 0.4 MG SUBL ONE; +SODIUM CHLORIDE 0.9% 100 ML ONE
[2020-02-05 08:08] LABS: BLOOD UREA NITROGEN 23 mg/dL (7-26); BUN/CREATININE RATIO 26 (6-25); CREATININE, SERUM 0.89 mg/dL (0.57-1.11); EST GLOMERULAR FILTRATION RATE > 60 ML/MIN (60-)
== END ==
LOC: CT 07:12
PROVIDERS: ATTEND Internal Medicine
DX: R07.9 Chest pain, unspecified (principal)
CPT/HCPCS: 36415; 75574; 82565; 84520; J7050; Q9967

== ENCOUNTER → 2021-10-04 | Outpatient (CLI) | payer MEDICARE ==
[~2021-10-04] MED LIST changes: -IOPAMIDOL 370 MG/ML 200 ML INFUS..BTL INJ ONE; -METOPROLOL TARTRATE 25 MG TAB ONE; -METOPROLOL TARTRATE INJ 1 MG/ML VIAL ONE; -NITROGLYCERIN 0.4 MG SUBL ONE; -SODIUM CHLORIDE 0.9% 100 ML ONE
== END ==
LOC: US 09:30
PROVIDERS: ATTEND Urology
DX: N39.0 Urinary tract infection, site not specified (principal); R31.21 Asymptomatic microscopic hematuria
CPT/HCPCS: 74018; 76770

== ENCOUNTER 2021-11-06 14:00 | Inpatient (IN) | payer MEDICARE ==
[~2021-11-06] VITALS: Ht 162.6 cm; Wt 75.7 kg
[2021-11-06] MEDS ORDERED: SODIUM CHLORIDE 0.9% 1000ML 1,000 ML IV STA (14:33)
[2021-11-06 14:54] LABS: BASOPHILS % 0.2 % (0.0-1.0); EOSINOPHILS # (AUTO) 0.1 (0.0-0.4); EOSINOPHILS % 2.1 % (0.0-6.0); HEMATOCRIT 34.4 % (34.2-44.1); HEMOGLOBIN 11.1 g/dL (12.0-16.0); LYMPHOCYTES # (AUTO) 1.3 (1.0-3.2); LYMPHOCYTES % 28.5 % (18.0-39.1); MEAN CORPUSCULAR HEMOGLOBIN 28.8 pg (28-32); MEAN CORPUSCULAR HGB CONC 32.3 g/dL (31-35); MEAN CORPUSCULAR VOLUME 89.4 fL (81-99); MONOCYTES # (AUTO) 0.9 (0.2-0.8); NEUTROPHILS # (AUTO) 2.3 (2.1-6.9); NEUTROPHILS % 48.8 % (38.7-80.0); PLATELET COUNT 198 x10e3/uL (140-360); RED BLOOD COUNT 3.85 x10e6/uL (3.6-5.1); RED CELL DISTRIBUTION WIDTH 13.2 % (11.7-14.4)
[2021-11-06 15:04] LABS: INR 1.16; PROTHROMBIN TIME 15.8 seconds (11.9-14.5)
[2021-11-06 15:05] LABS: PARTIAL THROMBOPLASTIN TIME 27.7 seconds (23.8-35.5)
[2021-11-06 15:12] LABS: ALBUMIN 3.5 g/dL (3.5-5.0); ANION GAP 16.2 mmol/L (8-16); CALCIUM 8.5 mg/dL (8.4-10.2); CREATININE, SERUM 0.79 mg/dL (0.57-1.11); POTASSIUM 4.2 mmol/L (3.5-5.1)
[2021-11-06 15:20] LABS: CREATINE KINASE MB 0.6 ng/mL (0-5.0)
[2021-11-06 15:57] LABS: CLARITY,URINE SL CLOUDY (CLEAR); COLOR,URINE YELLOW (YELLOW); KETONES,URINE TRACE (NEGATIVE); LEUKOCYTE ESTERASE ,URINE SMALL (NEGATIVE); NITRITE,URINE NEGATIVE (NEGATIVE); PROTEIN,URINE DIPSTICK 1+ (NEGATIVE); URINE UROBILINOGEN 0.2 mg/dL (0.2 - 1)
[2021-11-06 16:09] LABS: AMORPHOUS SEDIMENT,URINE MODERATE (FEW); BACTERIA,URINE MODERATE /HPF; EPITHELIAL CELLS,URINE FEW /LPF
[2021-11-06] MEDS ORDERED: ONDANSETRON HCL INJ 2MG/ML 2ML 2 MG/ML VIAL IV PRN (17:30)
[2021-11-06] MEDS ORDERED: IOPAMIDOL 370 MG/ML 100 ML INFUS..BTL INJ ONE (19:46)
[2021-11-06 20:00] VITALS: BP 133/68
[2021-11-06] MEDS: SODIUM CHLORIDE 0.9% 1000ML 1,000 ML IV SCH ×2 (20:27→23:53)
[2021-11-06 23:30] VITALS: BP 113/61
[2021-11-06] MEDS: METRONIDAZOLE 500MG/NS 100ML 100 ML IV SCH (23:53)
[2021-11-07] VITALS (7 sets, daily range): BP systolic 110–129; BP diastolic 54–65
[2021-11-07] MEDS ORDERED: METOPROLOL SUCC50 MG PO (03:58)
[2021-11-07] MEDS ORDERED: TRULICITY1.5 MG/0.5 PO (03:58)
[2021-11-07] MEDS ORDERED: XARELTO20 MG PO (03:58)
[2021-11-07] MEDS ORDERED: ROSUVASTATIN CA20 MG PO (03:58)
[2021-11-07] MEDS ORDERED: OXYBUTYNIN CHLO10 MG PO (03:58)
[2021-11-07] MEDS ORDERED: LOSARTAN POTASS25 MG PO (03:58)
[2021-11-07] MEDS ORDERED: LEVOTHYROXINE112 MCG PO (03:58)
[2021-11-07] MEDS ORDERED: METFORMIN HCL500 MG PO (03:58)
[2021-11-07 04:52] LABS: CREATINE KINASE 56 IU/L (29-168)
[2021-11-07] MEDS: METRONIDAZOLE 500MG/NS 100ML 100 ML IV SCH ×3 (05:56→21:00)
[2021-11-07 06:26] LABS: BASOPHILS % 0.4 % (0.0-1.0); EOSINOPHILS # (AUTO) 0.2 (0.0-0.4); EOSINOPHILS % 3.2 % (0.0-6.0); HEMATOCRIT 31.2 % (34.2-44.1); HEMOGLOBIN 10.1 g/dL (12.0-16.0); LYMPHOCYTES # (AUTO) 1.5 (1.0-3.2); LYMPHOCYTES % 32.9 % (18.0-39.1); MEAN CORPUSCULAR HEMOGLOBIN 28.5 pg (28-32); MEAN CORPUSCULAR HGB CONC 32.4 g/dL (31-35); MEAN CORPUSCULAR VOLUME 88.1 fL (81-99); MONOCYTES # (AUTO) 0.9 (0.2-0.8); MONOCYTES % 19.4 % (4.4-11.3); NEUTROPHILS # (AUTO) 2.1 (2.1-6.9); NEUTROPHILS % 43.9 % (38.7-80.0); PLATELET COUNT 189 x10e3/uL (140-360); RED BLOOD COUNT 3.54 x10e6/uL (3.6-5.1)
[2021-11-07 06:47] LABS: ALBUMIN/GLOBULIN RATIO 0.9 (0.8-2.0); ANION GAP 15.5 mmol/L (8-16); CALCIUM 8.3 mg/dL (8.4-10.2); CREATININE, SERUM 0.83 mg/dL (0.57-1.11); POTASSIUM 3.5 mmol/L (3.5-5.1)
[2021-11-07 13:24] LABS: OCCULT BLOOD STOOL POSITIVE (NEGATIVE)
[2021-11-07 14:40] LABS: CREATINE KINASE MB 0.6 ng/mL (0-5.0)
[2021-11-07] MEDS: SODIUM CHLORIDE 0.9% 1000ML 1,000 ML IV SCH (20:10)
[2021-11-08] VITALS (7 sets, daily range): BP systolic 111–127; BP diastolic 54–70
[2021-11-08] MEDS ORDERED: BISACODYL 5 MG TAB EC PO ONE ×2 (01:00→01:30)
[2021-11-08] MEDS ORDERED: CITRATE OF MAGNESIA 300ML BOTTLE PO ONE ×2 (05:00→07:00)
[2021-11-08] MEDS: LEVOTHYROXINE SODIUM 75 MCG TAB PO SCH (06:00)
[2021-11-08] MEDS: METRONIDAZOLE 500MG/NS 100ML 100 ML IV SCH ×2 (06:00→13:54)
[2021-11-08 06:26] LABS: BASOPHILS % 0.4 % (0.0-1.0); EOSINOPHILS # (AUTO) 0.2 (0.0-0.4); EOSINOPHILS % 3.4 % (0.0-6.0); HEMATOCRIT 31.8 % (34.2-44.1); HEMOGLOBIN 10.2 g/dL (12.0-16.0); LYMPHOCYTES # (AUTO) 1.9 (1.0-3.2); LYMPHOCYTES % 39.5 % (18.0-39.1); MEAN CORPUSCULAR HEMOGLOBIN 28.2 pg (28-32); MEAN CORPUSCULAR HGB CONC 32.1 g/dL (31-35); MEAN CORPUSCULAR VOLUME 87.8 fL (81-99); MONOCYTES # (AUTO) 0.6 (0.2-0.8); MONOCYTES % 12.7 % (4.4-11.3); NEUTROPHILS # (AUTO) 2.1 (2.1-6.9); NEUTROPHILS % 43.8 % (38.7-80.0); PLATELET COUNT 210 x10e3/uL (140-360); RED BLOOD COUNT 3.62 x10e6/uL (3.6-5.1)
[2021-11-08 06:47] LABS: ANION GAP 15.2 mmol/L (8-16); CALCIUM 8.7 mg/dL (8.4-10.2); CREATININE, SERUM 0.85 mg/dL (0.57-1.11); POTASSIUM 3.2 mmol/L (3.5-5.1)
[2021-11-08 07:15] LABS: % IRON SATURATION 9 % (15-50); IRON 26 ug/dL (50-170); TOTAL IRON BINDING CAPACITY 276 ug/dL (261-478); TRANSFERRIN 197 mg/dL (180-382)
[2021-11-08] MEDS: SODIUM CHLORIDE 0.9% 1000ML 1,000 ML IV SCH ×2 (09:30→19:28)
[2021-11-08] MEDS ORDERED: PIPERACILLIN/TAZOBACTAM 3.375 GM VIAL ONE (12:11)
[2021-11-08] MEDS ORDERED: MIDAZOLAM HCL 2 MG/2 ML VIAL ONE (13:40)
[2021-11-08] MEDS ORDERED: FENTANYL CITRATE/PF 100MCG/2 ML INJ ONE (13:40)
[2021-11-08] MEDS ORDERED: PROPOFOL IV EMULSION 10 MG/ML 20 ML VIAL ONE (15:36)
[2021-11-08] MEDS ORDERED: HYOSCYAMINE SULFATE 0.5 MG/ML INJ ONE (15:36)
[2021-11-08 18:07] LABS: WBC,FECAL (FECAL LACTOFERRIN) NEGATIVE (NEGATIVE)
[2021-11-08] MEDS ORDERED: POTASSIUM CHLORIDE 20 MEQ TAB CR PO ONE (18:30)
[2021-11-08] MEDS: AMOXICILLIN/CLAVULANATE K 500 MG TAB PO SCH (20:13)
[2021-11-08] MEDS: METFORMIN HCL 500 MG TAB PO SCH (20:14)
[2021-11-08] MEDS: DICYCLOMINE HCL 10 MG CAP PO SCH (20:14)
[2021-11-09 00:09] VITALS: BP 114/52
[2021-11-09 04:39] VITALS: BP 121/55
[2021-11-09] MEDS: LEVOTHYROXINE SODIUM 75 MCG TAB PO SCH (06:00)
[2021-11-09 08:17] VITALS: BP 123/64
[2021-11-09 08:42] VITALS: BP 123/64
[2021-11-09] MEDS: AMOXICILLIN/CLAVULANATE K 500 MG TAB PO SCH (09:41)
[2021-11-09] MEDS: DICYCLOMINE HCL 10 MG CAP PO SCH ×2 (09:42→15:00)
[2021-11-09] MEDS: METFORMIN HCL 500 MG TAB PO SCH (09:42)
[2021-11-09 11:24] VITALS: BP 115/58
[2021-11-09] MEDS: SODIUM CHLORIDE 0.9% 1000ML 1,000 ML IV SCH (12:10)
[2021-11-09 15:19] VITALS: BP 115/61
[2021-11-09] MEDS ORDERED: AUGMENTIN 500-1 EACH PO (15:57)
== END 2021-11-09 16:29 | disposition home or self-care (01) | DRG 386 ==
LOC: ER 14:29 → ERHOLD 17:22 → MED/SURG3 22:56
PROVIDERS: ADMIT Internal Medicine; ATTEND Internal Medicine
PROC: 0DBP8ZX Excision of Rectum, Via Natural or Artificial Opening Endoscopic, Diagnostic (ICD-10-PCS; principal; 2021-11-08 16:10)
PROC: 0DBE8ZX Excision of Large Intestine, Via Natural or Artificial Opening Endoscopic, Diagnostic (ICD-10-PCS; 2021-11-08 16:10)
DX: K51.00 Ulcerative (chronic) pancolitis without complications (principal); N39.0 Urinary tract infection, site not specified; K64.8 Other hemorrhoids; K62.89 Other specified diseases of anus and rectum; K21.9 Gastro-esophageal reflux disease without esophagitis; I10 Essential (primary) hypertension; E03.9 Hypothyroidism, unspecified; E11.9 Type 2 diabetes mellitus without complications; Z20.822 Contact with and (suspected) exposure to COVID-19
CPT/HCPCS: 36415; 45378; 45380; 71045; 74177; 80048; 80053; 81001; 82270; 82550; 82553; 82607; 82746; 82948; 83540; 83630; 83690; 83993; 84466; 84484; 85025; 85045; 85610; 85730; 87045; 87177; 87324; 87328; 87449; 87493; 88305; 93005; 94799; 96361; 99251; 99284; J1980; J2250; J2543; J3010; J7030; Q9967